=== PATIENT | female | born 1995 | race Caucasian/White ===

== ENCOUNTER 2018-12-16 08:31 | Outpatient (CLI) | payer OTHER ==
[2018-12-16] MEDS ORDERED: LIDOCAINE-MPF 1%, 5ML ONE (11:20)
== END 2018-12-16 23:59 | disposition home or self-care (01) ==
LOC: RAD 08:31
PROVIDERS: ATTEND Family Medicine
DX: E04.1 Nontoxic single thyroid nodule (principal)
CPT/HCPCS: 10005; 76942; 88172; 88173; 88177